=== PATIENT | male | born 1980 | race Two or more races ===

== ENCOUNTER 2022-03-01 07:00 | Day surgery (SDC) | payer OTHER ==
[2022-02-28 15:30] LABS: Basophils # (auto) 0.1 10 ^3/uL (0-0.2); Basophils % (auto) 1.1 % (0.0-2.0); Eosinophils # (auto) 0.2 10 ^3/uL (0-0.8); Eosinophils % (auto) 3.1 % (0.0-7.0); Hematocrit 49.1 % (41.0-53.0); Hemoglobin 16.2 g/dL (13.5-17.5); Lymphocytes # (auto) 1.7 10 ^3/uL (0.4-5.4); Lymphocytes % (auto) 23.5 % (10.0-50.0); Mean Corpuscular Hemoglobin 30.6 pg (28.0-32.0); Mean Corpuscular Hgb Conc. 32.9 g/dL (32.0-36.0); Monocytes # (auto) 0.5 10 ^3/uL (0-1.3); Monocytes % (auto) 6.7 % (0.0-12.0); Neutrophils # (auto) 4.8 10 ^3/uL (1.6-8.6); Neutrophils % (auto) 65.6 % (37.0-80.0); Nucleated Red Blood Cells % 0.1 %; Red Blood Cells 5.28 10^6/uL (4.5-5.90); Red Cell Distribution Width 13.1 % (11.8-14.3); White Blood Cell 7.4 10^3/uL (4.4-10.8)
[2022-02-28 15:36] LABS: Urine Bacteria NONE SEEN /hpf (None Seen); Urine Blood Negative /uL (Negative); Urine Specific Gravity 1.019 (1.001-1.035); Urine WBC 2 /hpf (0 - 3)
[2022-02-28 15:44] LABS: INR 1.1 (0.9-1.15); Partial Thromboplastin Time 26.6 sec (23.6-33.0)
[2022-02-28 15:47] LABS: Albumin 3.9 g/dL (3.4-5.0); Calcium 8.8 mg/dL (8.5-10.1); Potassium 3.8 mmol/L (3.5-5.1)
[2022-02-28 15:55] LABS: BUN/Creatinine Ratio 11.1; Total Protein 8.3 g/dL (6.4-8.2)
[~2022-03-01] VITALS: Ht 180.3 cm; Wt 88.5 kg
[2022-03-01] MEDS ORDERED: ceFAZolin 1GM/50ML 100 ML IV ONE (07:35)
[2022-03-01] MEDS ORDERED: methylPREDNISolone ACETATE 80 MG/ML VL ONE (08:30)
[2022-03-01] MEDS ORDERED: BACITRACIN TOP OINT 1 UD PKG TOP ONE ×2 (08:30→08:31)
[2022-03-01] MEDS ORDERED: ROPIVACAINE 0.5% (5MG/ML) 20ML AMPULE IJ ONE (08:31)
[2022-03-01] MEDS ORDERED: ONDANSETRON HCL 4 MG/2 ML VIAL IV PRN (08:45)
[2022-03-01] MEDS ORDERED: HYDROmorphone HCL 2 MG/ML VL/or syr IV PRN ×2 (08:45)
[2022-03-01] MEDS ORDERED: fentaNYL CITRATE 100 MCG/2 ML VL ONE (08:49)
[2022-03-01] MEDS ORDERED: MIDAZOLAM HCL 2MG/2ML 2ml VIAL (1mg/ml) ONE (08:49)
[2022-03-01] MEDS ORDERED: PROPOFOL 10 MG/ML 20 ML IV ONE (09:32)
[2022-03-01] MEDS ORDERED: ONDANSETRON HCL 4 MG/2 ML VIAL ONE (09:33)
[2022-03-01] MEDS ORDERED: LIDOCAINE 2% (LOCAL ANESTH.) PF 5ml SDV ONE (09:33)
[2022-03-01 10:30] VITALS: BP 121/88
== END 2022-03-01 10:43 | disposition home or self-care (01) ==
LOC: SUR 07:00
PROVIDERS: ATTEND Podiatrist Foot & Ankle Surgery
DX: M72.2 Plantar fascial fibromatosis (principal); Z98.890 Other specified postprocedural states; Z79.899 Other long term (current) drug therapy; Z87.891 Personal history of nicotine dependence; Z20.822 Contact with and (suspected) exposure to COVID-19
CPT/HCPCS: 29893; 36415; 80053; 81001; 85025; 85610; 85730; J0690; J1040; J1170; J2001; J2250; J2405; J2704; J2795; J3010; U0003